=== PATIENT | male | born 1965 | race Caucasian/White ===

== ENCOUNTER 2020-02-16 21:18 | Inpatient (IN) | payer BC, MEDICAID ==
[~2020-02-16] VITALS: Ht 175.3 cm; Wt 102.0 kg
[2020-02-16] MEDS ORDERED: ONDANSETRON 2MG/ML, 2ML IVPush ONE (21:30)
[2020-02-16] MEDS ORDERED: SODIUM CHLORIDE FLUSH 10ML SYR IVF ONE (21:30)
[2020-02-16] MEDS ORDERED: MORPHINE SULFATE 4 MG/ML, 1ML IVPush PRN (21:30)
--- NOTE | 2020-02-16 21:34 | NUR ---
PT SENT FROM [facility] FOR GI CONSULT. PT HAS A HX OF GALLSTONES FOR WHICH HE'S HAD SX BEFORE. PT STILL HAS HIS GALLBLADDER. PT DENIES N/V/D. PT HAS "TOLERABLE PAIN" AT 3/10 AT THIS TIME. WILL CONTINUE TO MONITOR AND MEDICATE INDICATED. ERP AT BEDSIDE TO UPDATE PT ON POC INCLUDING MRCP.
[2020-02-16] MEDS ORDERED: ONDANSETRON 2MG/ML, 2ML ONE (21:48)
[2020-02-16] MEDS ORDERED: MORPHINE SULFATE 4 MG/ML, 1ML ONE (21:48)
--- NOTE | 2020-02-16 21:55 | NUR ---
PT PROVIDED WITH FOOD PER ERP OKAY. PT RESTING COMFORTABLY IN BED, WATCHING T.V. NADN. BEDRAILS UP X2, CALL LIGHT IN REACH. WILL CONTINUE TO MONITOR.
[2020-02-16 22:17] LABS: BASOPHILS % (AUTO) 1 % (0-1); EOSINOPHILS % (AUTO) 2 % (1-7); LYMPHOCYTES % (AUTO) 16 % (22-44); MEAN CORPUSCULAR HEMOGLOBIN 28.7 pg (27.5-34.5); MEAN CORPUSCULAR HGB CONC 33.7 g/dL (33.2-36.2); MEAN PLATELET VOLUME 8.4 fL (7.4-10.4); MONOCYTES % (AUTO) 11 % (2-9); NEUTROPHILS % (AUTO) 72 % (42-75); PLATELET COUNT 395 x10^3/uL (130-400); RED BLOOD COUNT 5.16 x10^6/uL (4.38-5.82); RED CELL DISTRIBUTION WIDTH 14.8 % (9.4-14.8)
[2020-02-16 22:23] LABS: INTERNATIONAL NORMALIZED RATIO 0.95 (0.93-1.1); MD NO; PROTHROMBIN TIME 10.1 Seconds (9.6-11.5)
[2020-02-16 22:24] LABS: ALBUMIN 3.3 g/dL (3.4-5.0); ANION GAP 7 mmol/L (5-15); CALCIUM 9.3 mg/dL (8.5-10.1); CHLORIDE 105 mmol/L (98-107)
[2020-02-16 22:27] LABS: ALANINE AMINOTRANSFERASE 183 U/L (12-78); ALKALINE PHOSPHATASE 290 U/L (45-117); BILIRUBIN,TOTAL 5.8 mg/dL (0.2-1.0); CREATININE 0.86 mg/dL (0.7-1.3); TOTAL PROTEIN 7.3 g/dL (6.4-8.2)
[2020-02-16] MEDS ORDERED: PIPERACILLIN/TAZO/PMX 3.375GM 50 ML IVPB ONE (23:00)
--- NOTE | 2020-02-16 23:10 | NUR ---
REPORT TO ZENOBIA, FLOOR RN.
[2020-02-16 23:46] VITALS: BP 144/77
[2020-02-17 01:20] VITALS: BP 144/77
[2020-02-17] MEDS ORDERED: BISACODYL 10 MG SUPP PR PRN (01:30)
[2020-02-17] MEDS ORDERED: MELATONIN 5 MG TABLET PO PRN (01:30)
[2020-02-17] MEDS ORDERED: LIDODERM 5% PATCH TD PRN (01:30)
[2020-02-17] MEDS ORDERED: ONDANSETRON 2MG/ML, 2ML IVPush PRN (01:30)
[2020-02-17] MEDS: PIPERACILLIN/TAZO/PMX 3.375GM 50 ML IV SCH ×4 (04:00→23:50)
[2020-02-17] MEDS: LACTATED RINGERS 1,000 ML IV SCH ×2 (04:00→23:50)
[2020-02-17] MEDS: morphine SULFATE 10 MG/ML, 1ML IVPush PRN ×3 (05:40→19:41)
[2020-02-17 06:22] LABS: BASOPHILS % (AUTO) 1 % (0-1); EOSINOPHILS % (AUTO) 3 % (1-7); LYMPHOCYTES % (AUTO) 19 % (22-44); MEAN CORPUSCULAR HGB CONC 33.9 g/dL (33.2-36.2); MEAN PLATELET VOLUME 8.7 fL (7.4-10.4); MONOCYTES % (AUTO) 14 % (2-9); NEUTROPHILS % (AUTO) 64 % (42-75); PLATELET COUNT 365 x10^3/uL (130-400); RED BLOOD COUNT 4.73 x10^6/uL (4.38-5.82); RED CELL DISTRIBUTION WIDTH 15.5 % (9.4-14.8)
[2020-02-17 06:31] LABS: CHLORIDE 105 mmol/L (98-107)
[2020-02-17 06:49] LABS: ALANINE AMINOTRANSFERASE 153 U/L (12-78); ALBUMIN 2.9 g/dL (3.4-5.0); ALKALINE PHOSPHATASE 258 U/L (45-117); ANION GAP 8 mmol/L (5-15); BILIRUBIN,TOTAL 4.8 mg/dL (0.2-1.0); CALCIUM 8.7 mg/dL (8.5-10.1); TOTAL PROTEIN 6.4 g/dL (6.4-8.2)
[2020-02-17 06:53] LABS: MD NO
[2020-02-17 07:00] VITALS: BP 144/81
[2020-02-17 13:34] VITALS: BP 162/108
[2020-02-17] MEDS: KETOROLAC 30 MG/1 ML IV PRN (19:41)
[2020-02-17 19:57] VITALS: BP 153/80
[2020-02-18 03:55] VITALS: BP 160/87
[2020-02-18] MEDS: PIPERACILLIN/TAZO/PMX 3.375GM 50 ML IV SCH ×3 (05:51→20:51)
[2020-02-18] MEDS: morphine SULFATE 10 MG/ML, 1ML IVPush PRN ×2 (05:59→21:34)
[2020-02-18 06:38] VITALS: BP 156/89
[2020-02-18 08:15] LABS: BASOPHILS % (AUTO) 1 % (0-1); EOSINOPHILS % (AUTO) 4 % (1-7); LYMPHOCYTES % (AUTO) 16 % (22-44); MEAN CORPUSCULAR HEMOGLOBIN 29.8 pg (27.5-34.5); MEAN CORPUSCULAR HGB CONC 34.4 g/dL (33.2-36.2); MEAN PLATELET VOLUME 8.4 fL (7.4-10.4); MONOCYTES % (AUTO) 13 % (2-9); NEUTROPHILS % (AUTO) 66 % (42-75); PLATELET COUNT 360 x10^3/uL (130-400); RED BLOOD COUNT 4.53 x10^6/uL (4.38-5.82); RED CELL DISTRIBUTION WIDTH 15.2 % (9.4-14.8)
[2020-02-18 08:25] LABS: ANION GAP 6 mmol/L (5-15); CALCIUM 8.6 mg/dL (8.5-10.1); CHLORIDE 106 mmol/L (98-107); CREATININE 1.15 mg/dL (0.7-1.3)
[2020-02-18 08:37] LABS: MD NO
[2020-02-18] MEDS ORDERED: EPHEDRINE 50 MG/ML, 1ML ONE (10:56)
[2020-02-18] MEDS ORDERED: MIDAZOLAM 1 MG/ML, 2ML ONE (12:02)
[2020-02-18] MEDS ORDERED: FENTANYL PF 100 MCG/2ML ONE (12:02)
[2020-02-18 12:11] VITALS: BP 162/107
[2020-02-18] MEDS ORDERED: PROMETHAZINE 25 MG/ML, 1ML IVPush PRN (12:30)
[2020-02-18] MEDS ORDERED: HYDROcodone/APAP 7.5-325MG/15ML UDC PO PRN (12:30)
[2020-02-18] MEDS ORDERED: OXYcodone 5 MG/5 ML ORAL.SOL UDC PO PRN (12:30)
[2020-02-18] MEDS ORDERED: FENTANYL PF 100 MCG/2ML IV PRN (12:30)
[2020-02-18] MEDS ORDERED: CHLORHEXIDINE 15 ML UDC MM ONE (12:30)
[2020-02-18] MEDS: LACTATED RINGERS 1,000 ML IV SCH (12:40)
[2020-02-18] MEDS ORDERED: OMNIPAQUE 350 MG/ML, 50 ML BOTTLE ONE (13:00)
[2020-02-18 18:30] VITALS: BP 149/87
[2020-02-18 22:31] VITALS: BP 135/87
[2020-02-19] MEDS: PIPERACILLIN/TAZO/PMX 3.375GM 50 ML IV SCH ×5 (02:36→22:25)
[2020-02-19] MEDS: LACTATED RINGERS 1,000 ML IV SCH ×2 (02:36→17:11)
[2020-02-19] MEDS: morphine SULFATE 10 MG/ML, 1ML IVPush PRN ×2 (02:36→20:53)
[2020-02-19 03:00] VITALS: BP 127/71
[2020-02-19 06:05] LABS: BASOPHILS % (AUTO) 0 % (0-1); EOSINOPHILS % (AUTO) 0 % (1-7); LYMPHOCYTES % (AUTO) 8 % (22-44); MEAN CORPUSCULAR HGB CONC 33.3 g/dL (33.2-36.2); MEAN PLATELET VOLUME 8.6 fL (7.4-10.4); MONOCYTES % (AUTO) 7 % (2-9); NEUTROPHILS % (AUTO) 86 % (42-75); PLATELET COUNT 370 x10^3/uL (130-400); RED CELL DISTRIBUTION WIDTH 15.3 % (9.4-14.8)
[2020-02-19 06:08] LABS: MD NO
[2020-02-19 06:16] LABS: CHLORIDE 107 mmol/L (98-107)
[2020-02-19 06:23] LABS: ALANINE AMINOTRANSFERASE 97 U/L (12-78); ALBUMIN 2.7 g/dL (3.4-5.0); ALKALINE PHOSPHATASE 219 U/L (45-117); ANION GAP 5 mmol/L (5-15); BILIRUBIN,TOTAL 5.5 mg/dL (0.2-1.0); CALCIUM 8.6 mg/dL (8.5-10.1); CREATININE 1.08 mg/dL (0.7-1.3); TOTAL PROTEIN 6.4 g/dL (6.4-8.2)
[2020-02-19] MEDS ORDERED: BUPIVACAINE/PF 0.5% ONE (07:01)
[2020-02-19] MEDS ORDERED: THROMBIN 5,000 UNIT VIAL TP ONE (07:01)
[2020-02-19] MEDS ORDERED: EPINEPHRINE 1 MG/ML, 1ML ONE (07:02)
[2020-02-19] MEDS ORDERED: CHLORHEXIDINE 15 ML UDC ONE (07:17)
[2020-02-19] MEDS ORDERED: MIDAZOLAM 1 MG/ML, 2ML ONE (07:24)
[2020-02-19] MEDS ORDERED: FENTANYL PF 250 MCG/5ML ONE ×2 (07:24→08:31)
[2020-02-19] MEDS ORDERED: CHLORHEXIDINE 15 ML UDC MM ONE (07:30)
[2020-02-19] MEDS ORDERED: DEXAMETHASONE 4 MG/ML, 1ML ONE (08:26)
[2020-02-19] MEDS ORDERED: CEFAZOLIN 1,000 MG ONE (08:26)
[2020-02-19] MEDS ORDERED: PROPOFOL 10 MG/ML, 20ML ONE (08:26)
[2020-02-19] MEDS ORDERED: GLYCOPYRROLATE 0.2MG/1ML, 5ML ONE (08:26)
[2020-02-19] MEDS ORDERED: SUCCINYLCHOLINE 20 MG/ML, 10ML ONE (08:26)
[2020-02-19] MEDS ORDERED: NEOSTIGMINE 1 MG/ML, 10ML ONE (08:26)
[2020-02-19] MEDS ORDERED: ONDANSETRON 2MG/ML, 2ML ONE (08:26)
[2020-02-19] MEDS ORDERED: ROCURONIUM 10MG/ML,5ML ONE (08:26)
[2020-02-19] MEDS ORDERED: METHOCARBAMOL 1,000 MG in DEXTROSE 5% 100 ML IV PRN (08:30)
[2020-02-19] MEDS ORDERED: MEPERIDINE/PF 25MG/0.5ML IVPush PRN (08:30)
[2020-02-19] MEDS ORDERED: LORazepam 2 MG/ML, 1ML IVPush PRN (08:30)
[2020-02-19] MEDS ORDERED: ACETAMINOPHEN 325 MG TABLET PO PRN (08:30)
[2020-02-19] MEDS ORDERED: EPHEDRINE 50 MG/ML, 1ML IVPush PRN (08:30)
[2020-02-19] MEDS ORDERED: hydrALAzine 20 MG/ML, 1ML IV PRN (08:30)
[2020-02-19] MEDS ORDERED: HYDROmorphone 1 MG/ML, 1ML INJ IVPush PRN (08:30)
[2020-02-19] MEDS ORDERED: PROMETHAZINE 25 MG/ML, 1ML IVPush PRN (08:30)
[2020-02-19] MEDS ORDERED: LABETALOL 5MG/ML, 20ML IV PRN (08:30)
[2020-02-19] MEDS ORDERED: FENTANYL PF 100 MCG/2ML IV PRN (08:30)
[2020-02-19] MEDS ORDERED: OXYcodone 5 MG/5 ML ORAL.SOL UDC PO PRN (08:30)
[2020-02-19] MEDS ORDERED: ONDANSETRON 2MG/ML, 2ML IVPush PRN (08:30)
[2020-02-19] MEDS ORDERED: OXYcodone 5 MG/5 ML ORAL.SOL UDC ONE (09:08)
[2020-02-19] MEDS ORDERED: ACETAMINOPHEN 650 MG/20.3 ML UDC ONE (09:08)
[2020-02-19] MEDS ORDERED: FENTANYL PF 100 MCG/2ML ONE (09:08)
[2020-02-19] MEDS: KETOROLAC 30 MG/1 ML IV PRN ×2 (11:20→17:31)
[2020-02-19 14:10] VITALS: BP_SYST 144; BP_SYST 151; BP_DIAS 77; BP_DIAS 98
[2020-02-19 19:14] VITALS: BP 157/90
[2020-02-19 23:19] VITALS: BP 128/78
[2020-02-20 03:43] VITALS: BP 142/82
[2020-02-20] MEDS: PIPERACILLIN/TAZO/PMX 3.375GM 50 ML IV SCH ×3 (04:07→15:54)
[2020-02-20] MEDS: morphine SULFATE 10 MG/ML, 1ML IVPush PRN (04:08)
[2020-02-20] MEDS: LACTATED RINGERS 1,000 ML IV SCH ×2 (04:16→17:00)
[2020-02-20 06:28] LABS: BASOPHILS % (AUTO) 0 % (0-1); EOSINOPHILS % (AUTO) 0 % (1-7); LYMPHOCYTES % (AUTO) 14 % (22-44); MEAN CORPUSCULAR HEMOGLOBIN 29.2 pg (27.5-34.5); MEAN CORPUSCULAR HGB CONC 33.5 g/dL (33.2-36.2); MEAN PLATELET VOLUME 8.8 fL (7.4-10.4); MONOCYTES % (AUTO) 9 % (2-9); NEUTROPHILS % (AUTO) 77 % (42-75); PLATELET COUNT 324 x10^3/uL (130-400); RED BLOOD COUNT 4.01 x10^6/uL (4.38-5.82); RED CELL DISTRIBUTION WIDTH 15.1 % (9.4-14.8)
[2020-02-20 06:31] LABS: MD NO
[2020-02-20 06:34] LABS: ALBUMIN 2.6 g/dL (3.4-5.0); ANION GAP 5 mmol/L (5-15); CALCIUM 8.3 mg/dL (8.5-10.1); CHLORIDE 106 mmol/L (98-107)
[2020-02-20 06:37] LABS: ALANINE AMINOTRANSFERASE 75 U/L (12-78); ALKALINE PHOSPHATASE 187 U/L (45-117); BILIRUBIN,TOTAL 4.5 mg/dL (0.2-1.0); CREATININE 1.05 mg/dL (0.7-1.3); TOTAL PROTEIN 5.8 g/dL (6.4-8.2)
[2020-02-20 06:47] VITALS: BP 165/91
[2020-02-20] MEDS: KETOROLAC 30 MG/1 ML IV PRN ×2 (09:51→15:54)
[2020-02-20 13:04] VITALS: BP 142/84
[2020-02-20] MEDS ORDERED: ACID1TAB3 PO (16:17)
[2020-02-20] MEDS ORDERED: AMOX1TAB64 PO (16:17)
[2020-02-20 19:50] VITALS: BP 153/90
[2020-02-20] MEDS ORDERED: MORPHINE SULFATE 4 MG/ML, 1ML ONE (20:26)
== END 2020-02-20 20:30 | disposition home or self-care (01) | DRG 418 ==
LOC: ED 22:33 → EDIP 22:38 → ED 22:53 → 4NE 23:43
PROVIDERS: ADMIT Internal Medicine; ATTEND Internal Medicine
PROC: 0F798DZ Dilation of Common Bile Duct with Intraluminal Device, Via Natural or Artificial Opening Endoscopic (ICD-10-PCS; principal; 2020-02-18 12:30)
PROC: 0FT44ZZ Resection of Gallbladder, Percutaneous Endoscopic Approach (ICD-10-PCS; 2020-02-19)
DX: K80.01 Calculus of gallbladder with acute cholecystitis with obstruction (principal); K83.09 Other cholangitis; K76.9 Liver disease, unspecified; K86.9 Disease of pancreas, unspecified; Z20.828 Contact with and (suspected) exposure to other viral communicable diseases
CPT/HCPCS: 36415; 74328; 96374; 96375; 99285; S0020; 74181; 80048; 80053; 83690; 85025; 85610; 85730; 87040; 87635; 88304; G0378; J0171; J0690; J1100; J1885; J2250; J2405; J2543; J2704; J2710; J3010; Q9967; C1769; C1894; C2625; J0330; J2270; J7120